=== PATIENT | female | born 1975 | race Caucasian/White ===

== ENCOUNTER 2016-11-04 10:29 | Emergency (ER) | payer BC ==
[~2016-11-04] VITALS: Ht 170.2 cm; Wt 110.0 kg
[~2016-11-04 10:29] MED LIST: ACET-1256 PO; BUSP-8 PO; CITA40TA4 PO; DIVA250T PO; LIDO5DIS10 TD; TRAZ50TA35 PO
[2016-11-04 10:43] VITALS: TEMP 37.3; Ht 170.2 cm; Wt 110.0 kg
[2016-11-04] MEDS ORDERED: BUPR100T13 PO (10:56)
[2016-11-04] MEDS ORDERED: ALBUT/IPRATROP 3MG/0.5MG NEB 3 ML VIAL ONE (11:02)
[2016-11-04] MEDS ORDERED: ALBUT/IPRATROP 3MG/0.5MG NEB 3 ML VIAL INH STA (11:03)
[2016-11-04 11:06] VITALS: O2SAT 96
--- NOTE | 2016-11-04 11:31 | DIAGNOSTIC IMAGING REPORT ---
CHEST ONE VIEW PORTABLE HISTORY: cough wheezing COMPARISON: Chest 01/24/2012. FINDINGS: No focal lung consolidations to suggest pneumonia. No evidence for pulmonary edema. No pleural effusions. No pneumothorax. The heart is normal in size. Cholecystectomy. Questionable right suprahilar density is likely due to the overlapping first rib. IMPRESSION: No focal lung consolidations to suggest pneumonia. Electronically signed by: Duncan Ledesma M.D. 11/04/2016 11:30 AM Dictated Date/Time: 11/04/2016 11:28 AM
[2016-11-04 11:40] LABS: BASO % 0.6 %; BASO ABS # 0.02 K/uL (0-0.2); COMPLETE YES; HEMATOCRIT 38.3 % (37-47); LYMPH % 43.4 %; LYMPH ABS # 1.52 K/uL (1.2-3.4); MEAN CELL VOLUME 88.5 fL (80-100); MEAN CORPUSCULAR HEMOGLOBIN 28.6 pg (25-34); MEAN CORPUSCULAR HGB CONC 32.4 g/dl (32-36); MEAN PLATELET VOLUME 11.3 fL (7.4-10.4); MONO % 13.1 %; NEUT % 38.9 %; PLATELET COUNT 157 K/uL (130-400); RED BLOOD COUNT 4.33 M/uL (4.2-5.4)
[2016-11-04] MEDS ORDERED: ALBUTEROL HFA 8 GM INHALER INH STA (11:53)
[2016-11-04 11:56] LABS: BUN/CREATININE RATIO 13.7 (10-20); CALCIUM 8.4 mg/dl (8.5-10.1); CREATININE 1.2 mg/dl (0.60-1.20)
[2016-11-04] MEDS ORDERED: METH4PAK PO ×2 (11:58→12:12)
[2016-11-04] MEDS ORDERED: HYDR5SYP11 PO ×3 (11:58→12:12)
[2016-11-04] MEDS ORDERED: DOXY100C PO ×2 (11:58→12:12)
[2016-11-04 11:59] LABS: ALB/GLOB RATIO 0.9 (0.9-2)
[2016-11-04] MEDS ORDERED: DEXAMETHASONE SOD INJ 10 MG/ML VIAL IV ONE (12:00)
[2016-11-04 12:25] VITALS: BP 117/86; PULSE 81; O2SAT 100
--- NOTE | 2016-11-04 18:43 | EMERGENCY ROOM VISIT NOTE ---
History First contact with patient: 11:42 Chief Complaint: RESPIRATORY PROBLEMS Stated Complaint: COUGHING, TROUBLE BREATHING, FEVER Nursing Triage Summary: patient with cough since Wednesday has gotten worse unable to talk or breath without coughing dry non productive History of Present Illness The patient is a 41 year old female who presents to the Emergency Room with complaints of worsening productive cough and fever. The patient reports that her symptoms started throughout the day on Wednesday, with 3 days ago. Her daughter was diagnosed with bronchitis over the weekend, with her symptoms starting approximately 3-4 days earlier. The patient does report a prior history of asthma. She has noticed wheezing at home. Her last asthma exacerbation was approximately 12 years ago. She does not have any inhalers at home. The patient has not noticed any significant chest pain, but has had shortness of breath. She rates her overall discomfort a 6 out of 10. Review of Systems HEENT: Denies dizziness, visual problems, hearing loss, tinnitus. Denies difficulty swallowing or oral lesions. PULMONARY: See history of present illness. CARDIOVASCULAR: Denies chest pain, palpitations, dyspnea on exertion, orthopnea or peripheral edema. GASTROINTESTINAL: Denies diarrhea, constipation, nausea, vomiting, or abdominal pain. GENITOURINARY: Denies dysuria, frequency, urgency or nocturia. NEUROLOGIC: Denies history of epilepsy, CVA, TIA or chronic headaches. MUSCULOSKELETAL: Denies history of joint tenderness/swelling. SKIN: Denies rashes or lesions. PSYCHIATRIC: Denies history of depression or mental illness. ENDOCRINE: Denies history of diabetes or thyroid disorders. Past Medical/Surgical History Medical Problems: (1) Asthma, Unspecified (2) Endometriosis Surgical Problems: (1) Bariatric Surgery Status (2) Kidney Donor Family History Unremarkable Social History Smoking Status: Never Smoker Alcohol Use: none Drug Use: none Marital Status: single Occupation Status: employed Current/Historical Medications Scheduled Bupropion Hcl (Wellbutrin), 100 MG PO HS Citalopram (Citalopram Hydrobromide), 1 TAB PO HS Divalproex Sodium (Depakote Er), 1 TAB PO HS Doxycycline Hyclate (Vibramycin), 100 MG PO BID Methylprednisolone (Medrol Dosepak), 0 PO DAILY Trazodone Hcl (Trazodone), 50 MG PO HS Scheduled PRN Hydrocodone W/ Homatropine (Hycodan 5/1.5MG 5 Ml), 5-10 ML PO Q4H PRN for Cough Allergies Coded Allergies: Diphenhydramine (Verified Allergy, Severe, ANAPHYLAXIS WHEN GIVEN PCN WITH BENADRYL, 11/04/16) Penicillins (Verified Allergy, Severe, ANAPHYLAXIS (WHEN GIVEN PCN WITH BENADRYL), 11/04/16) Fentanyl (Verified Allergy, Intermediate, FACIAL RASH WITH PEELING, ) Physical Exam Vital Signs Date Time Temp Pulse Resp B/P Pulse Ox O2 Delivery O2 Flow Rate FiO2 11/04/16 12:25 81 20 117/86 100 Room Air 11/04/16 11:09 96 Room Air 11/04/16 11:06 88 11/04/16 11:06 96 Room Air 11/04/16 11:06 95 22 127/84 96 Room Air 11/04/16 10:43 37.3 90 20 118/84 98 Physical Exam CONSTITUTIONAL: Healthy and well nourished. Alert and oriented X 3 with positive affect. Patient has a persistent nonproductive cough. She does not appear acutely ill or toxic. HEENT: Normocephalic, atraumatic. Pupils equal, round and reactive. Ears and nares are clear. No conjunctival injection or scleral icterus. OROPHARYNX: No tonsillar hypertrophy or exudates. NECK: Full active range of motion without discomfort. No nuchal rigidity. LYMPHATICS: No cervical chain adenopathy. RESPIRATORY: Clear to auscultation bilaterally with no wheezing, crackles, rhonchi or stridor. CARDIOVASCULAR: Regular rate and rhythm with no murmurs, rubs or gallops. GASTROINTESTINAL: Bowel sounds present in all quadrants. Soft and nontender to palpation. MUSCULOSKELETAL: Full range of motion of all joints without discomfort. INTEGUMENTARY: No rash or other significant dermatologic conditions noted. HEMATOLOGIC: No ecchymosis or petechiae noted. NEUROLOGIC: No focal neurologic deficits noted. Medical Decision & Procedures ER Provider Diagnostic Interpretation: My interpretation of an ECG shows a normal sinus rhythm of [address] elevation or other conduction abnormalities. My interpretation of a portable chest x-ray does not show any consolidations, pneumothorax or cardiac prominence. Radiologist report is as follows: CHEST ONE VIEW PORTABLE HISTORY: cough wheezing COMPARISON: Chest 01/24/2012. FINDINGS: No focal lung consolidations to suggest pneumonia. No evidence for pulmonary edema. No pleural effusions. No pneumothorax. The heart is normal in size. Cholecystectomy. Questionable right suprahilar density is likely due to the overlapping first rib. IMPRESSION: No focal lung consolidations to suggest pneumonia. Laboratory Results 11/04/16 11:32 Red Blood Count 4.33, Mean Corpuscular Volume 88.5, Mean Corpuscular Hemoglobin 28.6, Mean Corpuscular Hemoglobin Concent 32.4, Mean Platelet Volume 11.3, Neutrophils (%) (Auto) 38.9, Lymphocytes (%) (Auto) 43.4, Monocytes (%) (Auto) 13.1, Eosinophils (%) (Auto) 4.0, Basophils (%) (Auto) 0.6, Neutrophils # (Auto ) 1.36, Lymphocytes # (Auto) 1.52, Monocytes # (Auto) 0.46, Eosinophils # (Auto ) 0.14, Basophils # (Auto) 0.02 11/04/16 11:32 Test 11/04/16 11:31 11/04/16 11:32 Bedside Troponin I 0.000 ng/ml (0-0.045) White Blood Count 3.50 K/uL (4.8-10.8) Red Blood Count 4.33 M/uL (4.2-5.4) Hemoglobin 12.4 g/dL (12.0-16.0) Hematocrit 38.3 % (37-47) Mean Corpuscular Volume 88.5 fL (80-100) Mean Corpuscular Hemoglobin 28.6 pg (25-34) Mean Corpuscular Hemoglobin Concent 32.4 g/dl (32-36) Platelet Count 157 K/uL (130-400) Mean Platelet Volume 11.3 fL (7.4-10.4) Neutrophils (%) (Auto) 38.9 % Lymphocytes (%) (Auto) 43.4 % Monocytes (%) (Auto) 13.1 % Eosinophils (%) (Auto) 4.0 % Basophils (%) (Auto) 0.6 % Neutrophils # (Auto) 1.36 K/uL (1.4-6.5) Lymphocytes # (Auto) 1.52 K/uL (1.2-3.4) Monocytes # (Auto) 0.46 K/uL (0.11-0.59) Eosinophils # (Auto) 0.14 K/uL (0-0.5) Basophils # (Auto) 0.02 K/uL (0-0.2) RDW Standard Deviation 46.4 fL (36.4-46.3) RDW Coefficient of Variation 14.2 % (11.5-14.5) Immature Granulocyte % (Auto) 0.0 % Immature Granulocyte # (Auto) 0.00 K/uL (0.00-0.02) Anion Gap 7.0 mmol/L (3-11) Est Creatinine Clear Calc Drug Dose 80.5 ml/min Estimated GFR () 65.9 Estimated GFR (Non- 56.9 BUN/Creatinine Ratio 13.7 (10-20) Calcium Level 8.4 mg/dl (8.5-10.1) Total Bilirubin 0.2 mg/dl (0.2-1) Aspartate Amino Transf (AST/SGOT) 37 U/L (15-37) Alanine Aminotransferase (ALT/SGPT) 52 U/L (12-78) Alkaline Phosphatase 88 U/L (45-117) Total Protein 7.6 gm/dl (6.4-8.2) Albumin 3.5 gm/dl (3.4-5.0) Globulin 4.1 gm/dl (2.5-4.0) Albumin/Globulin Ratio 0.9 (0.9-2) The above labs were reviewed and were grossly normal. Troponin is normal. Medications Administered Medications (Trade) Dose Ordered Sig/Chanel Route Start Time Stop Time Status Last Admin Dose Admin Albuterol/ Ipratropium (Duoneb) 3 ml STK-MED ONCE .ROUTE 11/04/16 11:02 11/04/16 11:06 DC 11/04/16 11:09 3 ML Dexamethasone Sodium Phosphate (Decadron Inj) 10 mg NOW ONCE IV 11/04/16 12:00 11/04/16 12:01 DC 11/04/16 12:16 10 MG Albuterol (Ventolin Hfa Inhaler) 2 puffs ONE STAT INH 11/04/16 11:53 11/04/16 11:54 DC 11/04/16 12:16 2 PUFFS ED Course Patient history and physical exam were performed. Nurse's notes were reviewed. Vital signs were reviewed, showing an O2 saturation of 98% on room air. The patient is not tachycardic or febrile. She is also normotensive. The patient does have a persistent nonproductive cough. Per nursing protocol, IV access was established, and labs were drawn. Portable chest x-ray and ECG were normal. Bedside troponin was normal. Review of remaining labs were also normal. The patient was administered a unit dose DuoNeb treatment with mild relief of her cough. The patient was administered Decadron 10 mg IVP. The patient was advised that her symptoms are likely secondary to an acute bronchitis. There is no evidence for pneumonia on chest x-ray. The patient will be provided prescriptions for doxycycline and a Medrol Dosepak. She was dispensed a Ventolin metered-dose inhaler with AeroChamber, and instructions for its use. She was encouraged to follow-up with her PCP for recheck in the next 2-3 days. Seek further emergent reevaluation for any developing chest pain , worsening shortness of breath or increasing fever. The patient was happy with plan of care, and voiced understanding of all discharge instructions. Medical Decision The patient presents to the emergency department with complaint of a productive cough, although her cough is nonproductive in the emergency department. Her chest x-ray does not show any evidence for pneumonia. Laboratory studies were normal, including a negative troponin. ECG was also normal. I do not suspect an acute cardiac event such as myocardial infarction, pericarditis, myocarditis or CHF. The patient does have a history of asthma. She is maintaining good O2 saturation on room air. [place] Drug Monitoring Program Search Results: patient reviewed within database, no issues identified Impression Primary Impression: Acute bronchitis Departure Information Prescriptions Hydrocodone W/ Homatropine (HYCODAN 5/1.5MG 5 ML) 1 Syp Syp 5-10 ML PO Q4H Y for Cough, #200 ML Prov: Dedrick Vyas PA 11/04/16 Methylprednisolone (MEDROL DOSEPAK) 4 Mg Jhoan 0 PO DAILY, #1 PKT Prov: Dedrick Vyas PA 11/04/16 Doxycycline Hyclate (VIBRAMYCIN) 100 Mg Cap 100 MG PO BID for 10 Days, #20 CAP Prov: Dedrick Vyas PA 11/04/16 [facility] Patient Instructions My [facility] Problem Qualifiers Primary Impression: Acute bronchitis Bronchitis organism: unspecified organism Qualified Codes: J20.9 - Acute bronchitis, unspecified
== END 2016-11-04 12:31 | disposition home or self-care (01) ==
LOC: C.EDB 10:30 → C.EDC 12:31
DX: J20.9 Acute bronchitis, unspecified (principal); J45.909 Unspecified asthma, uncomplicated; N80.9 Endometriosis, unspecified; Z98.84 Bariatric surgery status; Z79.899 Other long term (current) drug therapy

== ENCOUNTER 2019-09-11 06:02 | Observation (INO) ==
--- NOTE | 2019-08-30 11:11 | PAT Medication Instructions ---
Medication Instructions Date of Service August 30, 2019 Home Medications fluoxetine 40 mg capsule 40 mg PO HS topiramate 100 mg tablet 100 mg PO HS trazodone 50 mg tablet 50 mg PO HS Take evening before surgery fluoxetine 40 mg capsule 40 mg PO HS topiramate 100 mg tablet 100 mg PO HS trazodone 50 mg tablet 50 mg PO HS Other Notes If you have any questions please call us at [phone] or [phone] or [phone] or [phone]
--- NOTE | 2019-08-30 14:12 | Anesthesiology Consultation ---
Date of Service August 30, 2019 Assessment & Plan (1) Encounter for pre-operative examination: - Check test AM DOS Chart Review Chart Review: Acceptable Risk for Surgery and Patient seen in Pre Admission Te sting Teaching & Discussion Pre-Anesthesia Teaching/Discussion Notes: Instructed NPO after midnight before surgery,except medications with 15 cc of water. Medication instructions provided according to the PAT guidelines. History Surgery Operation Date: 09/11/19 07:30 Proposed Procedures p Robotic Total Laparoscopic Hysterectomy - Tae Dover MD Height/Weight Height: 5 ft 7 in Weight: 131.3 kg Allergies Allergy/AdvReac Type Severity Reaction Status Date / Time diphenhydramine Allergy Severe ANAPHYLAXIS Verified 08/30/19 13:13 WHEN GIVEN PCN WITH BENADRYL Penicillins Allergy Severe ANAPHYLAXIS Verified 08/30/19 13:13 (WHEN GIVEN PCN WITH BENADRYL) fentanyl Allergy Unknown FACIAL Verified 08/30/19 13:13 RASH WITH PEELING AND BURNING SENSATION Medications Home Medications Medication Instructions Recorded Confirmed Last Taken fluoxetine 40 mg capsule 40 mg PO HS 08/08/19 08/30/19 Unknown topiramate 100 mg tablet 100 mg PO HS tab 08/08/19 08/30/19 Unknown trazodone 50 mg tablet 50 mg PO HS 08/08/19 08/30/19 Unknown Past Medical History Medical History Anxiety Bipolar disorder Depression Esophagitis determined by endoscopy 04/2019 History of endometriosis Morbid obesity Solitary right kidney s/p kidney donation Exercise / Class Metabolic Activity II 4-5 Yardwork/Stairs/Walk up hill Past Family History Family History Grandmother (Maternal) Family history of diabetes mellitus Past Surgical History Surgical History H/O kidney removal LEFT History of cholecystectomy History of colonoscopy History of endoscopy History of gastric bypass History of gynecologic surgery UTERUS ABLATION, B/L SALPINGECTOMY History of tonsillectomy History of wisdom tooth extraction Surgical history of tubal ligation Past Anesthesia History No Hx of Anesthesia Complications and No Family Hx of Anesthesia Complications History of PONV No Hx of PONV and No Hx of Motion Sickness Social History Smoking Status: Former smoker tobacco type: cigarettes Do You Dip or Chew Tobacco: No Smoking End Date: QUIT 3 MONTHS AGO (Hx tobacco use x several years) Hx Alcohol Use: No Hx Substance Use: No substance use type: does not use Review of Systems URI symptoms significantly improved as of PAT visit (+ non-productive cough). Patient denies chest pain, shortness of breath, dyspnea on exertion, reflux, wheezing, palpitations. Physical Exam Vital Signs VITALS BP 101/64 P 71 TEMP 97.9 SP02 100%RA RESP 18 PHYSICAL Full neck and c-spine range of motion. Full TMJ range of motion. TMD 3.5 finger breaths Mallampati Score 2 Dentition: cap vs front upper front right tooth, chipped molar Lungs: clear throughout to auscultation Cardiac: regular rate and rhythm, no murmurs noted Spine: normal Carotid arteries: negative bruit Extremities: no edema Testing Laboratory Results 08/30/19 14:30 08/30/19 14:30 Blood Type O Negative 08/30/19 14:30 Antibody Screen NEGATIVE 08/30/19 14:30 Electrocardiogram Date: 05/15/19 NSR at 69bpm. Low voltage QRS, consider pulmonary disease, pericardial effusion or normal variant. No significant change compared to 12/22/18 per cardiology. Chest X-Ray Date: 05/15/19 Lungs clear of acute infiltrates. No effusions.
[2019-08-30 15:07] LABS: Basophils # (auto) 0.02 K/uL (0-0.2); Basophils % (auto) 0.3 %; Eosinophils # (auto) 0.25 K/uL (0-0.5); Hematocrit (blood only) 37.8 % (37-47); Hemoglobin 12.2 g/dL (12.0-16.0); Immature Granulocytes # (auto) 0.01 K/uL (0.00-0.02); Immature Granulocytes % (auto) 0.2 %; Lymphocytes # (auto) 1.63 K/uL (1.2-3.4); Lymphocytes % (auto) 26.2 %; Mean Corpuscular Hemoglobin 29.3 pg (25-34); Mean Corpuscular Hgb Conc 32.3 g/dL (32-36); Mean Corpuscular Volume 90.6 fL (80-100); Mean Platelet Volume 11.4 fL (7.4-10.4); Monocytes # (auto) 0.59 K/uL (0.11-0.59); Monocytes % (auto) 9.5 %; Neutrophils # (auto) 3.71 K/uL (1.4-6.5); Neutrophils % (auto) 59.8 %; Platelet Count 209 K/uL (130-400); RDW Coefficient of Variation 13.5 % (11.5-14.5); RDW Standard Deviation 44.4 fL (36.4-46.3); Red Blood Count 4.17 M/uL (4.2-5.4); White Blood Count 6.21 K/uL (4.8-10.8)
[2019-08-30 15:18] LABS: BUN Creatinine Ratio 15.4 (10-20); Calcium 8.5 mg/dl (8.5-10.1); Creatinine Clr Calc Pharmacy 82.8 ml/min; Est GFR (African American) 61.4; Potassium 4.3 mmol/L (3.5-5.1)
[~2019-09-11 06:02] MED LIST changes: -ACET-1256 PO; -BUSP-8 PO; +CEFAZOLIN 3000MG 72.5 ML IV SCH; -CITA40TA4 PO; -DIVA250T PO; -LIDO5DIS10 TD; +LR 15ML/HR IV SCH; +PHENAZOPYRIDINE HCL 100 MG TAB PO SCH; -TRAZ50TA35 PO
[2019-09-11] MEDS ORDERED: ONDANSETRON INJ 2 MG/ML 2 ML VIAL IV PRN ×2 (06:47→10:12)
[2019-09-11] MEDS ORDERED: ATROPINE SULFATE 0.1 MG/ML 10ML SYR IV PRN (06:47)
[2019-09-11] MEDS ORDERED: ePHEDrine sulfate 50 MG/ML AMP IV PRN (06:47)
[2019-09-11 07:00] LABS: Basophils # (auto) 0.03 K/uL (0-0.2); Basophils % (auto) 0.5 %; Eosinophils # (auto) 0.23 K/uL (0-0.5); Eosinophils % (auto) 3.6 %; Hematocrit (blood only) 37.6 % (37-47); Hemoglobin 12.1 g/dL (12.0-16.0); Immature Granulocytes # (auto) 0.01 K/uL (0.00-0.02); Immature Granulocytes % (auto) 0.2 %; Lymphocytes # (auto) 1.99 K/uL (1.2-3.4); Lymphocytes % (auto) 31.5 %; Mean Corpuscular Hgb Conc 32.2 g/dL (32-36); Mean Corpuscular Volume 90.2 fL (80-100); Mean Platelet Volume 11.5 fL (7.4-10.4); Monocytes # (auto) 0.42 K/uL (0.11-0.59); Monocytes % (auto) 6.7 %; Neutrophils # (auto) 3.63 K/uL (1.4-6.5); Neutrophils % (auto) 57.5 %; Platelet Count 207 K/uL (130-400); RDW Coefficient of Variation 13.8 % (11.5-14.5); RDW Standard Deviation 45.4 fL (36.4-46.3); Red Blood Count 4.17 M/uL (4.2-5.4); White Blood Count 6.31 K/uL (4.8-10.8)
[2019-09-11] MEDS ORDERED: BUPIVACAINE 0.5 % 5 MG/1 ML MPF 30ML VIAL ONE (07:02)
[2019-09-11] MEDS ORDERED: HYDROmorphone INJ 2 MG/ML SYR/VIAL ONE (07:06)
[2019-09-11] MEDS ORDERED: DEXAMETHASONE SOD INJ 4 MG/ML VIAL ONE (07:06)
[2019-09-11] MEDS ORDERED: MIDAZOLAM HCL 1 MG/ML 2ML VIAL ONE (07:06)
[2019-09-11] MEDS ORDERED: PROPOFOL IV EMULSION 10 MG/ML 20 ML VIAL IV ONE (07:06)
[2019-09-11] MEDS ORDERED: LIDOCAINE HCL 2% 2 ML VIAL/AMP(20MG/ML) INFIL ONE (07:06)
[2019-09-11] MEDS ORDERED: ROCURONIUM BROMIDE 10 MG/ML 5 ML VIAL ONE (07:06)
[2019-09-11] MEDS ORDERED: GLYCOPYRROLATE 0.2 MG/ML VIAL ONE ×2 (07:06→08:57)
[2019-09-11] MEDS ORDERED: ONDANSETRON INJ 2 MG/ML 2 ML VIAL ONE (07:06)
[2019-09-11] MEDS ORDERED: CEFAZOLIN 3000MG/72.5 ML BAG IV ONE (07:20)
[2019-09-11] MEDS ORDERED: CEFAZOLIN 3000MG 72.5 ML IV ONE (07:23)
--- NOTE | 2019-09-11 07:23 | History & Physical Bridge Note ---
Date of Service September 11, 2019 History & Physical Bridge Note I have examined the patient, reviewed the History & Physical and in the interval since the performance of the History & Physical I have noted the following changes of clinical significance: no changes noted
[2019-09-11] MEDS ORDERED: ACETAMINOPHEN 1000 MG/100 ML IV IV ONE (08:47)
[2019-09-11] MEDS ORDERED: ePHEDrine sulfate 50 MG/ML SYR ONE (08:59)
[2019-09-11] MEDS ORDERED: TISSEEL FIBRIN SEALANT 4ML TOP ONE (09:06)
[2019-09-11] MEDS ORDERED: FUROSEMIDE 10 MG/ML 10 ML VIAL IV ONE (09:57)
[2019-09-11] MEDS ORDERED: OXYCODONE/ACETAMINOPHEN 5mg/325mg TAB PO PRN ×2 (10:12)
[2019-09-11] MEDS ORDERED: IBUPROFEN 600 MG TAB PO PRN (10:12)
[2019-09-11] MEDS ORDERED: PROMETHAZINE HCL 12.5 MG in SODIUM CHLORIDE 0.9% 50 ML IV PRN (10:12)
[2019-09-11] MEDS ORDERED: ACETAMINOPHEN 325 MG TAB PO PRN (10:12)
[2019-09-11] MEDS ORDERED: KETOROLAC 30 MG/ML VIAL IV PRN (10:12)
--- NOTE | 2019-09-11 10:12 | Post Operative Brief Note ---
PG Immediate Post Op with CF Date of Surgery September 11, 2019 Pre & Post Diagnosis Operation Date: 09/11/19 07:30 Pre-Op Diagnosis: Endometriosis, Pelvic Pain Post-Op Diagnosis: Endometriosis, Pelvic Pain I identified the patient and participated in the time-out.: Yes Procedure Operation Date: 09/11/19 07:30 Actual Procedures p Robotic Total Laparoscopic Hysterectomy with Bilateral Salpingectomies, and Cystoscopy(Bilateral) - Tae Dover MD Complications: None Surgeon Tae Dover MD [place] All Round None Estimated Blood Loss 15 Findings Consistent with Post-Op Diagnosis Specimens Specimen Description: A. Uterus, cervix, and bilateral fallopian tubes Drains Shea Catheter (18 Fr. Shea catheter inserted by Dr. Dover without difficulty. Draining clear yellow urine. Anesthesia to monitor urine output. Shea catheter removed at end of case. )
[2019-09-11] MEDS: HYDROmorphone INJ 1 MG/ML SYRINGE IV PRN ×6 (10:34→11:02)
[2019-09-11] MEDS ORDERED: METOCLOPRAMIDE HCL INJ 5 MG/ML 2 ML VIAL ONE (10:48)
[2019-09-11] MEDS ORDERED: METOCLOPRAMIDE HCL INJ 5 MG/ML 2 ML VIAL IV PRN (10:51)
--- NOTE | 2019-09-11 11:39 | Operative Report ---
DATE OF OPERATION: 09/11/2019 PROCEDURE: Robotic-assisted total laparoscopic hysterectomy and cystoscopy. SURGEON: Tae Dover MD. PREOPERATIVE DIAGNOSES: 1. Chronic pelvic pain. 2. Failed endometrial ablation. 3. 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 4. Endometriosis. POSTOPERATIVE DIAGNOSES: 1. Chronic pelvic pain. 2. Failed endometrial ablation. 3. 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 4. Endometriosis. 5. Status post procedure. ESTIMATED BLOOD LOSS: 15 mL. DRAINS: Shea. FLUIDS: Continuous lactated Ringer. URINE OUTPUT: Please see EMR. COMPLICATIONS: None. FINDINGS: There is noted to be normal-appearing ovaries bilaterally. Fallopian tubes were both absent from prior tubal ligation. The uterus was noted to have stigmata of adenomyosis and the uterine cavity did appear to be scarred on during placement of the VCare uterine manipulator. There was noted to be endometriosis in several areas as well as signs of chronic inflammation throughout the pelvis. The upper abdomen and bowels were grossly normal-appearing, no significant adhesive disease appreciated. DESCRIPTION OF PROCEDURE: The patient was taken to the operating room after consents were ensured. Upon presentation, she was properly identified. General endotracheal anesthesia was obtained without difficulty. The patient was then prepped and draped in normal sterile fashion. A preprocedural timeout was performed. A Shea catheter was placed. A speculum was then placed within the vagina. Cervix was visualized. Single tooth tenaculum placed on the cervix. Cervix was then dilated to 18 [place] and a VCare uterine manipulator was placed. The laparoscopic portion of the case was then initiated. An incision was made in the left upper quadrant to accommodate a 5 mm incision. A Veress needle was then inserted through the incision and the abdomen insufflated to 12 mmHg. There was a low opening pressure of approximately 6 mmHg. Tympany of the liver was not able to be appreciated secondary to the patient's body habitus and asymmetric rise was noted. A 5 mm optically guided port was then inserted through the left upper quadrant and immediate inspection following was noted for atraumatic entry. The abdomen was then surveyed and noted to be free of adhesions. A 12-mm incision was made on the superior aspect of the umbilicus and a 12-mm trocar was inserted under direct visualization, 8 mm incisions were placed in the right and left lower quadrants and 8-mm trocars were placed under direct visualization and atraumatic entry noted. The robot was then docked. The robotic portion of the case was initiated. Inspection of the abdomen and pelvis was performed with the robot and documenting pictures noted. The left round ligament was identified, grasped, serially cauterized, opening up the retroperitoneal space and allowing for the bladder flap to be dissected anteriorly. The uteroovarian ligament was then identified and vessels were identified, serially cauterized, dissected back to the level of the dissected round ligament. The broad ligament was then dissected to the level of the uterine vessels. The right side of the procedure was then initiated. The right round ligament was identified, cauterized, and serially dissected opening up the retroperitoneal space on the right side. This was continued anteriorly connecting to the bladder flap initiated on the left. The right uteroovarian vessels and ligament was identified, serially cauterized and dissected back to the level of the round ligament and the broad ligament was serially dissected down to the level of the uterine vessels. The uterine vessels were isolated bilaterally and serially cauterized. The bladder flap was further developed, freeing the bladder from the lower uterine segment and cervix, which was noted to be distal even from the initiation of the bladder flap. The [place] uterine manipulator cup was identified and the uterine vessels were then recauterized and dissected bilaterally. There was noted to be good blanching of the uterus throughout. The colpotomy was then started anteriorly and continued circumferentially around the cervix, freeing the cervix from the vagina. The uterus and cervix were then delivered through the vaginal cuff. The vaginal cuff was then closed with a continuous running V-Loc suture until airtight seal was noted. A cystoscopy was then performed and there was noted to be ureteral flow from the left ureter. The right kidney was noted to be surgically absent from prior kidney donation. Bladder was otherwise also intact. The laparoscopic portion of the case was then reinitiated. The abdomen was reinspected and noted to have continued hemostasis at all surgical pedicles. Tisseel was placed over the raw edges of all the pedicles and over the vaginal cuff. Laparoscopic portion of the case was stopped. The abdomen was desufflated and the fascia at the umbilical incision was grasped with Allises and closed and reapproximated with 0 Vicryl. The skin at all incisions were reapproximated with 4-0 Vicryl in single interrupted stitch. Dermabond was placed on top. 12 mL of Marcaine were distributed throughout the 4 incisions. Needle, sponge and instrument counts were correct at the completion of the case. The patient was awoken from anesthesia and taken to recovery room in stable condition. I attest to the content of the Intraoperative Record and any orders documented therein. Any exception s are noted below.
--- NOTE | 2019-09-11 11:55 | Anesthesiology Progress Note ---
Date of Service September 11, 2019 Anesthesia Post Procedure Vital Signs Vital Signs: Temp Pulse Pulse Resp BP BP Pulse Ox 09/11/19 11:20 97.9 F 62 14 118/71 94 09/11/19 11:10 97.9 F 62 14 116/66 94 09/11/19 11:00 65 14 103/68 94 09/11/19 10:50 66 14 103/72 100 09/11/19 10:40 67 12 109/72 100 09/11/19 10:30 76 13 121/84 100 09/11/19 10:23 97.3 F L 81 12 141/66 H 100 09/11/19 06:25 99.0 F 94 H 16 105/70 98 Pain Intensity Lower Abdomen: Pain Intensity: 6 Transfer of Care Handoff Completed per policy Notes Mental Status: alert / awake / arousable and participated in evaluation Patient Amnestic to Procedure: Yes Nausea / Vomiting: adequately controlled Pain: adequately controlled Airway Patency, RR, SpO2: stable & adequate BP & HR: stable & adequate Hydration State: stable & adequate Anesthetic Complications: no major complications apparent and Pt Satisfied with anesthetic care
[2019-09-11] MEDS ORDERED: INFLUENZA VIRUS QUAD VACCINE 0.5 ML SYR IM ONE (13:07)
[2019-09-11] MEDS ORDERED: INFLUENZA ADMINISTRATION CHARGE ONE (13:07)
[2019-09-11 14:18] VITALS: BP 107/61; TEMP 97.9; O2SAT 97
[2019-09-11 16:04] VITALS: PULSE 62
--- NOTE | 2019-09-13 11:43 | Discharge Summary ---
PROCEDURES WHILE ADMITTED: Total laparoscopic hysterectomy and cystoscopy. HOSPITAL COURSE: The patient was admitted and underwent the above noted procedure. The procedure was performed without difficulty. The patient remained in-house for recovery on day of procedure and ultimately met criteria for discharge and was discharged home in stable condition. Both written and verbal discharge instructions were provided to the patient prior to discharge and the patient was discharged home in stable condition with planned followup in 2 weeks.
== END 2019-09-11 16:30 | disposition home or self-care (01) ==
LOC: 4N 06:02 → ASU 06:02
DX: E66.01 Morbid (severe) obesity due to excess calories; Z88.5 Allergy status to narcotic agent; Z88.0 Allergy status to penicillin; F31.9 Bipolar disorder, unspecified; F41.9 Anxiety disorder, unspecified; Z68.42 Body mass index [BMI] 45.0-49.9, adult; N80.9 Endometriosis, unspecified; R10.2 Pelvic and perineal pain; Z88.8 Allergy status to other drugs, medicaments and biological substances